=== PATIENT | female | born 1985 | race Caucasian/White ===

== ENCOUNTER → 2018-07-01 | Outpatient (CLI) | payer OTHER, MEDICAID | LOC: FIMAGING 09:22 | PROVIDERS: ATTEND Obstetrics & Gynecology | DX: O09.522 Supervision of elderly multigravida, second trimester (principal); O30.032 Twin pregnancy, monochorionic/diamniotic, second trimester; Z3A.23 23 weeks gestation of pregnancy ==

== ENCOUNTER → 2018-07-11 | Outpatient (CLI) | payer OTHER, MEDICAID | LOC: FIMAGING 07:32 | PROVIDERS: ATTEND Obstetrics & Gynecology | DX: O30.032 Twin pregnancy, monochorionic/diamniotic, second trimester (principal); O09.522 Supervision of elderly multigravida, second trimester; Z3A.25 25 weeks gestation of pregnancy ==

== ENCOUNTER → 2018-07-15 | Outpatient (CLI) | payer OTHER, MEDICAID | LOC: FIMAGING 13:15 | PROVIDERS: ATTEND Obstetrics & Gynecology | DX: O09.522 Supervision of elderly multigravida, second trimester (principal); O30.032 Twin pregnancy, monochorionic/diamniotic, second trimester; O36.5922 Maternal care for other known or suspected poor fetal growth, second trimester, fetus 2; Z3A.26 26 weeks gestation of pregnancy ==

== ENCOUNTER 2018-08-12 11:16 | Outpatient (CLI) | payer OTHER, MEDICAID | END 2018-08-12 11:45 | disposition home or self-care (01) | LOC: FOBOP 11:16 ==

== ENCOUNTER 2018-08-20 10:00 | Outpatient (CLI) | payer OTHER, MEDICAID ==
--- NOTE | 2018-08-20 11:47 | OBPROG ---
Labor Progress Note Assessment/Plan: Assessment: 33 y/o mono/di twins @ 31 1/7 weeks scheduled NST. Plan: Reactive NST x 2. status reassuring. Continue scheduled 2 x/ weeks NST. 08/20/18 11:46 Subjective/Intrapartum Course: 08/20/18 11:44 Pt presents for scheduled NST for mono/di twins with IUGR of twin B 31 1/7 weeks. She is without complaints. - Contraction Pattern Assessment Current Contraction Pattern: Regular (irreg) - FHR Assessment Twin A FHR (bpm): 130 FHR Pattern Variability: Moderate FHR Category: 1 Twin B FHR (bpm): 130 FHR Pattern Variability: Moderate FHR Category: 1 Oxytocin Orders Assessment - Pre-Induction/Augmentation Assessment Gestational Age: 31 week(s) and 1 day(s) ICD10 Worksheet Patient Problems: Problems Problem Status Onset Monochorionic diamniotic twin gestation in third trimester Acute
== END 2018-08-20 11:10 | disposition home or self-care (01) ==
LOC: FOBOP 10:00
PROVIDERS: ATTEND Obstetrics & Gynecology
DX: O30.033 Twin pregnancy, monochorionic/diamniotic, third trimester (principal); Z3A.31 31 weeks gestation of pregnancy

== ENCOUNTER 2018-08-26 14:40 | Outpatient (CLI) | payer OTHER, MEDICAID | END 2018-08-26 16:05 | disposition home or self-care (01) | LOC: FOBOP 14:40 | PROVIDERS: ATTEND Obstetrics & Gynecology | DX: O30.033 Twin pregnancy, monochorionic/diamniotic, third trimester (principal); Z3A.32 32 weeks gestation of pregnancy ==